=== PATIENT | male | born 1985 | race African-American/Black ===

== ENCOUNTER 2018-05-13 18:22 | Emergency (ER) | payer OTHER ==
[~2018-05-13] VITALS: Ht 172.7 cm; Wt 63.5 kg
[2018-05-13 18:22] VITALS: BP 130/71
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
[2018-05-13] MEDS ORDERED: NAPROXEN 250 MG TABLET ONE (19:19)
[2018-05-13] MEDS ORDERED: NAPROXEN 250 MG TABLET PO ONE (19:30)
== END 2018-05-13 19:27 | disposition home or self-care (01) ==
LOC: ER 18:24
DX: G89.29 Other chronic pain (principal); M54.5 Low back pain
CPT/HCPCS: A4606; Z7610

== ENCOUNTER 2018-07-12 11:58 | Emergency (ER) | payer OTHER ==
[~2018-07-12] VITALS: Ht 172.7 cm; Wt 68.5 kg
--- NOTE | 2018-07-12 12:12 | NUR ---
PT BIB SELF C/O LEFT KNEE LACERATION PAIN SCALE 6/10, PT IS AOX4, NOT IN RESPIRATORY DISTRESS, V/S STABLE, KEPT RESTED AND COMFORTABLE.
--- NOTE | 2018-07-12 12:20 | NUR ---
NATIVIDAD GIVENS AT BEDSIDE FOR EVAL.
[2018-07-12] MEDS ORDERED: TDAP [DIPH/PERTUSSIS/TET] 0.5 ML VIAL IM ONE (12:30)
[2018-07-12] MEDS ORDERED: IBUPROFEN 600 MG TABLET PO ONE (12:30)
--- NOTE | 2018-07-12 13:08 | NUR ---
SUTURING DONE BY COLBY GIVENS.
--- NOTE | 2018-07-12 13:09 | NUR ---
Patient discharged to home in stable condition. Written and verbal after care instructions given. Patient verbalizes understanding of instruction.
[2018-07-12 13:15] VITALS: BP 121/78
== END 2018-07-12 13:15 | disposition home or self-care (01) ==
LOC: ER 12:04
DX: S81.012A Laceration without foreign body, left knee, initial encounter (principal); W26.8XXA Contact with other sharp object(s), not elsewhere classified, initial encounter; Y93.89 Activity, other specified; Y92.89 Other specified places as the place of occurrence of the external cause; Y99.8 Other external cause status
CPT/HCPCS: 12001; 90471; 90715; 99283; A4606; Z7610

== ENCOUNTER 2018-10-26 09:23 | Emergency (ER) | payer OTHER ==
[~2018-10-26] VITALS: Ht 172.7 cm; Wt 68.0 kg
[2018-10-26 09:23] VITALS: BP 135/82
== END 2018-10-26 09:51 | disposition home or self-care (01) ==
LOC: ER 09:25
DX: M54.5 Low back pain (principal); G89.29 Other chronic pain